=== PATIENT | male | born 1990 | race Caucasian/White ===

== ENCOUNTER 2018-05-16 17:46 | Emergency (ER) | payer MEDICAID ==
[~2018-05-16] VITALS: Ht 165.1 cm; Wt 92.5 kg
--- NOTE | 2018-05-16 17:50 | NUR ---
Patient to ER bed 08 to gown for evaluation. Side rails up. Report given to .
--- NOTE | 2018-05-16 17:52 | NUR ---
Pt brought by self,A&Ox4, pt presents to ER with rectal bleeding for the last 2 days, Pt he has intermittent bleeding during last month, Hx of hemorrhoids, afebrile, VS WNL,respirations even and unlabored.
[2018-05-16 18:06] VITALS: BP_SYST 131
--- NOTE | 2018-05-16 18:15 | NUR ---
NERISSA Hopper at bedside examining patient
--- NOTE | 2018-05-16 18:15 | NUR ---
Angelica richards in [facility] - 05/16/18 at 1828 by [email or web address] Elliott Hopper at bedside examining patient
--- NOTE | 2018-05-16 18:40 | NUR ---
Patient given written and verbal discharge instructions and verbalizes understanding. ER MD discussed with patient the results and treatment provided. Patient in stable condition. ID arm band removed. Rx of Colace and Anussol given. Patient educated on pain management and to follow up with PMD. Pain Scale 1/10 tolerable for patient. Opportunity for questions provided and answered. Medication side effect fact sheet provided.
[2018-05-16 18:41] VITALS: BP_SYST 128
== END 2018-05-16 18:41 | disposition home or self-care (01) ==
LOC: SED 17:46
DX: K64.4 Residual hemorrhoidal skin tags (principal); I10 Essential (primary) hypertension; Z87.442 Personal history of urinary calculi
CPT/HCPCS: 99283

== ENCOUNTER 2018-09-05 21:30 | Emergency (ER) | payer MEDICAID ==
[~2018-09-05] VITALS: Ht 165.1 cm; Wt 95.3 kg
[2018-09-05 22:00] VITALS: BP_SYST 149
[2018-09-05 22:54] VITALS: BP_SYST 149
== END 2018-09-05 22:54 | disposition home or self-care (01) ==
LOC: SED 21:30
DX: M54.41 Lumbago with sciatica, right side (principal); R03.0 Elevated blood-pressure reading, without diagnosis of hypertension; Z87.442 Personal history of urinary calculi
CPT/HCPCS: 72100-TC; 99283